=== PATIENT | male | born 1950 | race Two or more races ===

== ENCOUNTER 2018-10-19 12:17 | Emergency (ER) | payer MEDICARE ==
[~2018-10-19] VITALS: Ht 172.7 cm; Wt 79.4 kg
--- NOTE | 2018-10-19 12:35 | NUR ---
PT [facility] FROM [facility] C/O HEADACHE. PT ON MONITOR IN BED 6. WILL CONTINUE TO MONITOR.
--- NOTE | 2018-10-19 12:43 | NUR ---
RADIOLOGY AT BEDSIDE FOR XRAY
--- NOTE | 2018-10-19 12:50 | NUR ---
PHLEB AT BEDSIDE FOR LAB DRAW
[2018-10-19 12:58] LABS: BASOPHILS # (AUTO) 0.1 /CMM (0.0-0.2); BASOPHILS % (AUTO) 1.5 % (0.0-2.0); EOSINOPHILS % (AUTO) 1.7 % (0.0-6.0); HEMATOCRIT 42 % (39-51); HEMOGLOBIN 14.1 g/dL (13.5-17.5); LYMPHOCYTES # (AUTO) 1.7 /CMM (0.8-4.8); MEAN CORPUSCULAR HGB CONC 34 g/dl (31.0-36.0); MEAN CORPUSCULAR VOLUME 92 fL (80-96); MONOCYTES # (AUTO) 0.4 /CMM (0.1-1.30); NEUTROPHILS # (AUTO) 3.7 /CMM (1.8-8.9); NEUTROPHILS % (AUTO) 60.8 % (43.0-81.0); PLATELET COUNT (AUTO) 209 /CMM (150-450); RED BLOOD CELL COUNT(AUTO) 4.54 MIL/uL (4.5-6.0)
--- NOTE | 2018-10-19 13:04 | NUR ---
PT TAKEN TO RADIOLOGY VIA [facility]
[2018-10-19 13:09] LABS: CARBON DIOXIDE 30 mmol/L (21-32); CHLORIDE 106 mmol/L (98-107); CREATININE 0.8 mg/dL (0.6-1.3); GLUCOSE 87 mg/dL (74-106); POTASSIUM 3.7 mmol/L (3.5-5.1); SODIUM SERUM 144 mmol/L (136-145); UREA NITROGEN, BLOOD 14 mg/dL (7-18)
[2018-10-19 14:38] VITALS: BP 148/101
--- NOTE | 2018-10-19 14:38 | NUR ---
Patient discharged to home in stable condition. Written and verbal after care instructions given. Patient verbalizes understanding of instruction.
== END 2018-10-19 14:39 | disposition home or self-care (01) ==
LOC: ER 12:20
DX: R51 Headache (principal); R94.31 Abnormal electrocardiogram [ECG] [EKG]
CPT/HCPCS: 36415; 70450; 71045; 80048; 84484; 85025; 93005; 99284; A4606; Z7610